=== PATIENT | male | born 1960 | race Caucasian/White ===

== ENCOUNTER 2016-09-15 13:52 | Emergency (ER) | payer MEDICAID, OTHER ==
[2016-09-15] MEDS ORDERED: 0.9 % SODIUM CHLORIDE 1,000 ML BAG IV ONE (14:33)
[2016-09-15 14:40] LABS: BASO % 1.5 % (0-6); EOS % 0.9 % (0-6); GRAN % 60.3 % (47-80); HEMATOCRIT 48.6 % (42.0-52.0); HEMOGLOBIN 16.3 gm/dl (14.0-18.0); LYMPH % 29.8 % (16-45); MEAN CELL VOLUME 89.5 fl (81-97); MEAN CORPUSCULAR HGB CONC 33.5 g/dl (32-36); MEAN PLATELET VOLUME 12.1 fl (7.4-10.4); MONO % 7.5 % (0-9); PLATELET COUNT 198 K/uL (130-400); RED BLOOD COUNT 5.43 M/uL (4.40-5.70); RED CELL DISTRIBUTION WIDTH 12.7 % (11.5-14.5); WHITE BLOOD COUNT W/O DIFF 9.5 K/uL (4.2-12.2)
[2016-09-15 14:52] LABS: ACETONE,SERUM NEGATIVE (NEGATIVE)
[2016-09-15 14:54] LABS: ANION GAP 17.5 (7-16); BLOOD UREA NITROGEN 20 mg/dL (9-20); CARBON DIOXIDE 22.5 mmol/L (22-30); CREATININE 0.8 mg/dL (0.66-1.25); EST GLOMERULAR FILTRATION RATE > 60 ml/min; GLUCOSE,RANDOM 310 mg/dL (70-110)
[2016-09-15 15:31] LABS: URINE APPEARANCE CLEAR; URINE BILIRUBIN NEGATIVE (NEGATIVE); URINE BLOOD NEGATIVE (NEGATIVE); URINE COLOR YELLOW; URINE KETONE NEGATIVE (NEGATIVE); URINE LEUKOCYTE ESTERASE NEGATIVE (NEGATIVE); URINE NITRITE NEGATIVE (NEGATIVE); URINE PROTEIN NEGATIVE (NEGATIVE); URINE UROBILINOGEN 0.2 E.U./dL (0.20 - 1.00)
[2016-09-15 15:36] LABS: URINE GLUCOSE (UA) >=1000 mg/dL (NEGATIVE)
--- NOTE | 2016-09-15 15:52 | Emergency Department Record ---
History of Present Illness - General Chief complaint: Nausea, Vomiting, Diarrhea Stated complaint: ELEVATED BLOOD SUGAR,SENT BY HIS DR Time Seen by Provider: 09/15/16 14:25 Source: Patient Mode of Arrival: Ambulatory Limitations: No limitations - History of Present Illness Initial comments: pt was told to come in by family doctor because he had a hi bs yesterday. pt is a known diabetic but has not taken his meds for a year until 2 days ago when he restarted them. his acucheck this am was 268 MD complaint: Nausea Onset/Timin -: Days(s) Associated Symptoms: Nausea/vomiting - Related Data Home Medications Medication Instructions Recorded Confirmed Last Taken Ascorbic Acid [Vitamin C] 500 mg PO DAILY 08/02/15 09/15/16 09/15/16 Aspirin [Aspirin EC] 81 mg PO DAILY 08/02/15 09/15/16 09/15/16 Canagliflozin [Invokana] 300 mg PO DAILY 08/02/15 09/15/16 09/15/16 Cholecalciferol (Vitamin D3) 2,000 unit PO DAILY 08/02/15 09/15/16 09/15/16 [Vitamin D3] Gabapentin [Neurontin] 100 mg PO BID 08/02/15 09/15/16 09/15/16 Glipizide [Glucotrol] 5 mg PO DAILY 08/02/15 09/15/16 09/15/16 Ranitidine HCl [Zantac] 150 mg PO DAILY 08/02/15 09/15/16 1 Day Ago Vitamin E 400 unit PO DAILY 08/02/15 09/15/16 09/15/16 Clopidogrel Bisulfate [Plavix] 75 mg PO DAILY 09/15/16 09/15/16 09/15/16 Liraglutide [Victoza 3-Lauro] 0.6 mg SQ DAILY 09/15/16 09/15/16 09/15/16 Lisinopril [Lisinopril] 5 mg PO DAILY 09/15/16 09/15/16 09/15/16 Metformin HCl 500 mg PO BID 09/15/16 09/15/16 09/15/16 Metoprolol Tartrate [Metoprolol 25 mg PO BID 09/15/16 09/15/16 09/15/16 Tartrate] Allergies Allergy/AdvReac Type Severity Reaction Status Date / Time sulfamethoxazole AdvReac RASH Verified 08/02/15 16:34 [From Bactrim] trimethoprim [From Bactrim] AdvReac RASH Verified 08/02/15 16:34 Travel Screening - Travel/Exposure Within Last 30 Days Have you traveled within the last 30 days?: No - Travel/Exposure Within Last Year Have you traveled outside the [place] in the last year?: No - Additonal Travel Details Have you been exposed to anyone with a communicable illness?: No Review of Systems Reviewed: No additional complaints except as noted below Constitutional: Reports: As per HPI. Denies: Chills, Fever, Malaise, Night sweats, Weakness, Weight change Eyes: Reports: As per HPI. Denies: Eye discharge, Eye pain, Photophobia, Vision change ENT: Reports: As per HPI. Denies: Congestion, Dental pain, Ear pain, Epistaxis , Hearing loss, Throat pain Respiratory: Reports: As per HPI. Denies: Cough, Dyspnea, Hemoptysis, Stridor, Wheezes Cardiovascular: Reports: As per HPI. Denies: Arrhythmia, Chest pain, Dyspnea on exertion, Edema, Murmurs, Orthopnea, Palpitations, Paroxysmal nocturnal dyspnea, Rheumatic Fever, Syncope Endocrine: Reports: As per HPI. Denies: Fatigue, Heat or cold intolerance, Polydipsia, Polyuria Gastrointestinal: Reports: As per HPI. Denies: Abdominal pain, Constipation, Diarrhea, Hematemesis, Hematochezia, Melena, Nausea, Vomiting Genitourinary: Reports: As per HPI. Denies: Dysuria, Frequency, Hematuria, Incontinence, Retention, Testicular pain, Testicular mass, Urgency Musculoskeletal: Reports: As per HPI. Denies: Arthralgia, Back pain, Gout, Joint swelling, Myalgia, Neck pain Skin: Reports: As per HPI. Denies: Bruising, Change in color, Change in hair/ nails, Lesions, Pruritus, Rash Neurological: Reports: As per HPI. Denies: Abnormal gait, Confusion, Headache, Numbness, Paresthesias, Seizure, Tingling, Tremors, Vertigo, Weakness Psychiatric: Reports: As per HPI. Denies: Anxiety, Auditory hallucinations, Depression, Homicidal thoughts, Suicidal thoughts, Visual hallucinations Hematological/Lymphatic: Reports: As per HPI. Denies: Anemia, Blood Clots, Easy bleeding, Easy bruising, Swollen glands Past Medical History - SOCIAL HISTORY Smoking Status: Former smoker Alcohol Use: Rare Drug Use Detail:: Marijuana - RESPIRATORY Hx Respiratory Disorders: No - CARDIOVASCULAR Hx Cardio Disorders: No Hx Heart Attack: Yes (July 2015) Hx Hypertension: No - NEURO Hx Neuro Disorders: No - GI Hx GI Disorders: Yes Hx Reflux: Yes - Hx Genitourinary Disorders: No - ENDOCRINE Hx Endocrine Disorders: Yes Hx Diabetes: Yes (Type 2) Hx Thyroid Disease: No - MUSCULOSKELETAL Hx Musculoskeletal Disorders: Yes Hx Arthritis: Yes (back and shoulder) - PSYCH Hx Psych Problems: Yes Hx Anxiety: Yes - HEMATOLOGY/ONCOLOGY Hx Hematology/Oncology Disorders: No Family Medical History Any Significant Family History?: Yes Hx Cancer: Grandparents Hx Diabetes: Grandparents Hx Heart Disease: Grandparents Physical Exam - General General Appearance: Alert, Oriented x3, Cooperative, Mild distress - Head Head exam: Normal inspection - Eye Eye exam: Normal appearance, PERRL, EOMI Pupils: Normal accommodation - ENT ENT exam: Normal exam, Mucous membranes moist, Normal external ear exam, Normal orophraynx Ear exam: Normal external inspection. negative: External canal tenderness Nasal Exam: Normal inspection. negative: Discharge, Sinus tenderness Mouth exam: Normal external inspection, Tongue normal Teeth exam: Normal inspection. negative: Dental caries Throat exam: Normal inspection. negative: Tonsillar erythema, Tonsillar exudate - Neck Neck exam: Normal inspection, Full ROM. negative: Tenderness - Respiratory Respiratory exam: Normal lung sounds bilaterally. negative: Respiratory distress - Cardiovascular Cardiovascular Exam: Regular rate, Normal rhythm, Normal heart sounds - GI/Abdominal GI/Abdominal exam: Soft, Normal bowel sounds. negative: Tenderness - Rectal Rectal exam: Deferred - exam: Deferred - Extremities Extremities exam: Normal inspection, Full ROM, Normal capillary refill. negative: Tenderness - Back Back exam: Reports: Normal inspection, Full ROM. Denies: Muscle spasm, Rash noted, Tenderness - Neurological Neurological exam: Alert, CN II-XII intact, Normal gait, Oriented X3 - Psychiatric Psychiatric exam: Normal affect, Normal mood - Skin Skin exam: Dry, Intact, Normal color, Warm Course Vital Signs 09/15/16 14:03 Temperature 97.7 F Pulse Rate 91 H Respiratory 16 Rate Blood Pressure 120/88 Pulse Ox 96 Medical Decision Making - Management Options MDM Management: Additional Work-up Planned (e.g. ADM/Transfer/OP Study) - Data Complexity MDM Data: Labs Ordered and/or Reviewed - Lab Data Result diagrams: 09/15/16 14:30 09/15/16 14:30 Lab Results 09/15/16 09/15/16 09/15/16 Range/Units 14:30 14:30 14:30 WBC 9.5 (4.2-12.2) K/uL RBC 5.43 (4.40-5.70) M/uL Hgb 16.3 (14.0-18.0) gm/dl Hct 48.6 (42.0-52.0) % MCV 89.5 (81-97) fl MCH 30.0 (27-33) pg MCHC 33.5 (32-36) g/dl RDW 12.7 (11.5-14.5) % Plt Count 198 (130-400) K/uL MPV 12.1 H (7.4-10.4) fl Gran % 60.3 (47-80) % Lymphocytes % 29.8 (16-45) % Monocytes % 7.5 (0-9) % Eosinophils % 0.9 (0-6) % Basophils % 1.5 (0-6) % VBG pH 7.41 (7.32-7.41) Sodium 135 L (136-145) mmol/L Potassium 4.8 (3.5-5.1) mmol/L Chloride 95 L (98-107) mmol/L Carbon Dioxide 22.5 (22-30) mmol/L Anion Gap 17.5 H (7-16) BUN 20 (9-20) mg/dL Creatinine 0.8 (0.66-1.25) mg/dL Estimated GFR > 60 ml/min Random Glucose 310 H (70-110) mg/dL Calcium 9.6 (8.5-10.1) mg/dL Urine Color Urine Appearance Urine pH (5.0-8.0) Ur Specific [place] (1.002-1.030) Urine Protein (NEGATIVE) Urine Glucose (UA) (NEGATIVE) Urine Ketones (NEGATIVE) Urine Blood (NEGATIVE) Urine Nitrite (NEGATIVE) Urine Bilirubin (NEGATIVE) Urine Urobilinogen (0.20 - 1.00) E.U./dL Ur Leukocyte Esterase (NEGATIVE) Acetone, Qual Negative (NEGATIVE) 09/15/16 Range/Units 15:20 WBC (4.2-12.2) K/uL RBC (4.40-5.70) M/uL Hgb (14.0-18.0) gm/dl Hct (42.0-52.0) % MCV (81-97) fl MCH (27-33) pg MCHC (32-36) g/dl RDW (11.5-14.5) % Plt Count (130-400) K/uL MPV (7.4-10.4) fl Gran % (47-80) % Lymphocytes % (16-45) % Monocytes % (0-9) % Eosinophils % (0-6) % Basophils % (0-6) % VBG pH (7.32-7.41) Sodium (136-145) mmol/L Potassium (3.5-5.1) mmol/L Chloride (98-107) mmol/L Carbon Dioxide (22-30) mmol/L Anion Gap (7-16) BUN (9-20) mg/dL Creatinine (0.66-1.25) mg/dL Estimated GFR ml/min Random Glucose (70-110) mg/dL Calcium (8.5-10.1) mg/dL Urine Color Yellow Urine Appearance Clear Urine pH 5.5 (5.0-8.0) Ur Specific [place] 1.015 (1.002-1.030) Urine Protein Negative (NEGATIVE) Urine Glucose (UA) >=1000 mg/dl H (NEGATIVE) Urine Ketones Negative (NEGATIVE) Urine Blood Negative (NEGATIVE) Urine Nitrite Negative (NEGATIVE) Urine Bilirubin Negative (NEGATIVE) Urine Urobilinogen 0.2 (0.20 - 1.00) E.U./dL Ur Leukocyte Esterase Negative (NEGATIVE) Acetone, Qual (NEGATIVE) Disposition Disposition: Discharge Clinical Impression: Type 2 diabetes mellitus with hyperglycemia Qualifiers: Diabetes mellitus half-way insulin use: without half-way use Qualified Code(s ): E11.65 - Type 2 diabetes mellitus with hyperglycemia Disposition: Home, Self-Care Condition: (1) Good Instructions: Diabetic Hyperglycemia (ED) Additional Instructions: follow up with family doctor. return sooner if worse Forms: Patient Portal Access
== END 2016-09-15 16:16 | disposition home or self-care (01) ==
LOC: ER 13:52
DX: E11.65 Type 2 diabetes mellitus with hyperglycemia (principal); R11.2 Nausea with vomiting, unspecified; R19.7 Diarrhea, unspecified
CPT/HCPCS: 36416; 80048; 81003; 82009; 82800; 82948; 85025; 96360; 99284; J7030

== ENCOUNTER 2016-09-29 03:27 | Emergency (ER) | payer MEDICAID ==
[2016-09-29] MEDS ORDERED: DIPHENHYDRAMINE HCL IV 50 MG/ML VIAL IVP ONE (03:44)
[2016-09-29] MEDS ORDERED: METHYLPREDNISOLONE PF 125MG/VIAL IVP SCH (03:45)
[2016-09-29] MEDS ORDERED: METHYLPREDNISOLONE PF 125MG/VIAL IVP ONE (03:48)
--- NOTE | 2016-09-29 03:49 | Emergency Department Record ---
History of Present Illness - General Chief complaint: Rash Stated complaint: RASH Time Seen by Provider: 09/29/16 03:43 Source: Patient Mode of Arrival: Ambulatory Limitations: No limitations - History of Present Illness Initial comments: 56 yo male presents with hives over the last few hours. The hives are on the arms, legs, back, groin. The rash is very itchy. No shortness of breath, no facial or lip swelling. No new medications or products. He is allergic to sulfa. He treated at home with peroxide without improvement. MD complaint: Rash Onset/Timin -: Hour(s) Location: Back, LUE, L hand, R hand, Genitals Quality: Burning Consistency: Constant, Getting worse Improves with: None Worsens with: None Context: None Associated symptoms: Itching Treatments Prior to Arrival: None - Related Data Home Medications Medication Instructions Recorded Confirmed Last Taken Ascorbic Acid [Vitamin C] 500 mg PO DAILY 08/02/15 09/29/16 09/28/16 Aspirin [Aspirin EC] 81 mg PO DAILY 08/02/15 09/29/16 09/28/16 Canagliflozin [Invokana] 300 mg PO DAILY 08/02/15 09/29/16 09/28/16 Cholecalciferol (Vitamin D3) 2,000 unit PO DAILY 08/02/15 09/29/16 09/28/16 [Vitamin D3] Gabapentin [Neurontin] 100 mg PO BID 08/02/15 09/29/16 09/28/16 Glipizide [Glucotrol] 5 mg PO DAILY 08/02/15 09/29/16 09/28/16 Ranitidine HCl [Zantac] 150 mg PO DAILY 08/02/15 09/29/16 09/28/16 Vitamin E 400 unit PO DAILY 08/02/15 09/29/16 09/28/16 Clopidogrel Bisulfate [Plavix] 75 mg PO DAILY 09/15/16 09/29/16 09/28/16 Liraglutide [Victoza 3-Lauro] 1.2 mg SQ DAILY 09/15/16 09/29/16 09/28/16 Lisinopril [Lisinopril] 5 mg PO DAILY 09/15/16 09/29/16 09/28/16 Metformin HCl 500 mg PO BID 09/15/16 09/29/16 09/28/16 Metoprolol Tartrate [Metoprolol 25 mg PO BID 09/15/16 09/29/16 09/28/16 Tartrate] Previous Rx's Medication Instructions Recorded Diphenhydramine HCl [Benadryl] 25 mg PO Q6H #25 cap 09/29/16 Prednisone [Prednisone 20Mg] 20 mg PO DAILY #3 tab 09/29/16 Allergies Allergy/AdvReac Type Severity Reaction Status Date / Time sulfamethoxazole AdvReac RASH Verified 08/02/15 16:34 [From Bactrim] trimethoprim [From Bactrim] AdvReac RASH Verified 08/02/15 16:34 Travel Screening - Travel/Exposure Within Last 30 Days Have you traveled within the last 30 days?: No - Travel Symptoms Symptom Screening: None Review of Systems Constitutional: Denies: Chills, Fever, Malaise, Weakness Eyes: Denies: Eye discharge ENT: Denies: Congestion, Throat pain Respiratory: Denies: Cough, Dyspnea, Hemoptysis, Stridor, Wheezes Cardiovascular: Denies: Chest pain, Palpitations, Syncope Endocrine: Denies: Fatigue Gastrointestinal: Denies: Abdominal pain, Diarrhea, Nausea, Vomiting Genitourinary: Denies: Dysuria, Frequency, Hematuria Musculoskeletal: Denies: Arthralgia, Back pain, Joint swelling, Myalgia Skin: Reports: Change in color, Pruritus, Rash Neurological: Denies: Headache Psychiatric: Denies: Anxiety Hematological/Lymphatic: Denies: Blood Clots, Easy bleeding, Easy bruising, Swollen glands Past Medical History - SOCIAL HISTORY Smoking Status: Former smoker - RESPIRATORY Hx Respiratory Disorders: No - CARDIOVASCULAR Hx Cardio Disorders: Yes Hx Heart Attack: Yes (July 2015) Hx Hypertension: No - NEURO Hx Neuro Disorders: No - GI Hx GI Disorders: Yes Hx Reflux: Yes - Hx Genitourinary Disorders: No - ENDOCRINE Hx Endocrine Disorders: Yes Hx Diabetes: Yes (Type 2) Hx Thyroid Disease: No - MUSCULOSKELETAL Hx Musculoskeletal Disorders: Yes Hx Arthritis: Yes (back and shoulder) - PSYCH Hx Psych Problems: Yes Hx Anxiety: Yes - HEMATOLOGY/ONCOLOGY Hx Hematology/Oncology Disorders: No Family Medical History Any Significant Family History?: Yes Hx Cancer: Grandparents Hx Diabetes: Grandparents Hx Heart Disease: Grandparents Physical Exam - General General Appearance: Alert, Oriented x3, Cooperative, No acute distress Limitations: No limitations - Head Head exam: Normal inspection - Eye Eye exam: Normal appearance, PERRL. negative: Conjunctival injection, Periorbital swelling - ENT ENT exam: Normal exam Ear exam: Normal external inspection Nasal Exam: Normal inspection Mouth exam: Normal external inspection Teeth exam: Normal inspection Throat exam: Normal inspection - Neck Neck exam: Normal inspection, Full ROM. negative: Tenderness - Respiratory Respiratory exam: Normal lung sounds bilaterally. negative: Respiratory distress, Rhonchi, Stridor, Wheezes - Cardiovascular Cardiovascular Exam: Regular rate, Normal rhythm, Normal heart sounds - GI/Abdominal GI/Abdominal exam: Soft. negative: Tenderness - Rectal Rectal exam: Deferred - exam: Deferred - Extremities Extremities exam: negative: Normal inspection (patches of hives on upper extremitie), Pedal edema Image of Full Body: 1 - hives 2 - hives 3 - hives 4 - hives - Back Back exam: Denies: Normal inspection, CVA tenderness (R), CVA tenderness (L) - Neurological Neurological exam: Alert, Oriented X3 - Psychiatric Psychiatric exam: Normal affect, Normal mood. negative: Anxious - Skin Distribution of rash: Back, RUE, LUE, RLE, Other (groin) Description of rash: Urticarial Course Vital Signs 09/29/16 03:38 Temperature 97.7 F Pulse Rate [ 62 Pulse Ox Probe] Respiratory 16 Rate Blood Pressure 129/74 [Left Arm] Pulse Ox 95 - Reevaluation(s) Reevaluation #1: The patient is doing well. The hives have reduced. I discussed with him close monitoring of his blood sugars the next several days. I discussed treating mostly with Benadryl and a reduced dose and duration of Prednisone. He is to call his PCP tomorrow to discuss the hives as well. He is not drowsy or sleepy from the Benadryl at this time. 09/29/16 04:26 Reevaluation #2: The patient continues to do well. Hives are nearly gone We again discussed home care and reasons to return 09/29/16 04:55 Disposition Disposition: Discharge Clinical Impression: Hives Disposition: Home, Self-Care Condition: (1) Good Instructions: Urticaria (ED) Additional Instructions: You will need to monitor your blood sugars closely while on the steroids Check your sugars 3-4 times daily as they will run higher temporarily You may take benadryl every 4-6 hours if your have hives or itching Call your doctor tomorrow for close follow up and to discuss this ER visit Prescriptions: Diphenhydramine HCl [Benadryl] 25 mg PO Q6H #25 cap Prednisone [Prednisone 20Mg] 20 mg PO DAILY #3 tab Forms: Patient Portal Access Time of Disposition: 04:57
== END 2016-09-29 05:09 | disposition home or self-care (01) ==
LOC: ER 03:27
DX: L50.9 Urticaria, unspecified (principal); E11.9 Type 2 diabetes mellitus without complications; Z79.84 Long term (current) use of oral hypoglycemic drugs
CPT/HCPCS: 96374; 99284; J1200; J2930